=== PATIENT | male | born 1975 | race Caucasian/White ===

== ENCOUNTER 2017-09-25 18:10 | Emergency (ER) | payer OTHER ==
[~2017-09-25] VITALS: Ht 167.6 cm; Wt 80.7 kg
[2017-09-25 18:36] VITALS: BP 182/130
--- NOTE | 2017-09-25 18:44 | NUR ---
notified er md moya of elevated blood presure
--- NOTE | 2017-09-25 18:49 | NUR ---
42 YO M BIB SELF W/ C/O LEFT SIDED ABD PAIN 12/04 THAT IS CONSTANT, NON-RADIATING THAT BEGAN TODAY. PT DENIES N/V/D. DENIES FEVER/CHILLS. PT REPORTS THAT HE HAS NOT HAD ANY APPETITE CHANGES. PT A&O X 4. GCS 15. CMS INTACT. RR EVEN AND UNLABORED. LUNGS CLEAR BILAT. ABD SOFT, NON-TENDER. ER MD SERRANO NOTIFIED. PT NEEDS MET. WILL CONTINUE TO MONITOR.
--- NOTE | 2017-09-25 19:14 | NUR ---
PT MOVED TO BED 11
--- NOTE | 2017-09-25 20:00 | NUR ---
Patient appears to be resting comfortably in bed. Vital Signs within normal limits. Respirations even and unlabored.
[2017-09-25] MEDS ORDERED: NACL 0.9% 1,000 ML IV SCH (21:02)
[2017-09-25] MEDS ORDERED: MORPHINE SULFATE 4 MG/ML SYR IVP ONE (21:05)
[2017-09-25] MEDS ORDERED: ONDANSETRON 4 MG/2 ML VIAL IVP ONE (21:05)
[2017-09-25 21:24] LABS: APPEARANCE,URINE CLEAR (CLEAR); BILIRUBIN,URINE NEGATIVE (NEGATIVE); BLOOD, URINE NEGATIVE (NEGATIVE); LEUKOCYTE ESTERASE ,URINE NEGATIVE (NEGATIVE); NITRITE, URINE NEGATIVE (NEGATIVE); UGLUCOSE NEGATIVE (NEGATIVE)
[2017-09-25 21:26] LABS: BASOPHILS % (AUTO) 0.5 % (0.0-2.0); EOSINOPHILS # (AUTO) 0.1 K/uL (0-0.4); EOSINOPHILS % (AUTO) 1.3 % (0.0-4.0); HEMATOCRIT 47.4 % (36-52); HEMOGLOBIN 16.3 g/dL (12.0-18.0); LYMPHOCYTES # (AUTO) 2.6 K/uL (2.0-11.5); LYMPHOCYTES % (AUTO) 43.8 % (20.5-51.1); MEAN CORPUSCULAR HEMOGLOBIN 33 pg (27-31); MEAN CORPUSCULAR HGB CONC 34 g/dL (33-37); MEAN CORPUSCULAR VOLUME 96.8 fL (80-94); MONOCYTES # (AUTO) 0.8 K/uL (0.8-1.0); MONOCYTES % (AUTO) 13.1 % (1.7-9.3); NEUTROPHILS # (AUTO) 2.5 K/uL (1.8-7.7); NEUTROPHILS % (AUTO) 41.3 % (42.2-75.2); PLATELET COUNT (AUTO) 318 K/uL (140-450); RED CELL DISTRIBUTION WIDTH 12.4 % (11.6-13.7)
[2017-09-25 21:30] LABS: ANION GAP 9.9 (8-16); POTASSIUM 3.9 mmol/L (3.5-5.1)
[2017-09-25 21:30] LABS: COLOR,URINE STRAW (YELLOW)
--- NOTE | 2017-09-25 21:31 | NUR ---
PT TAKEN TO CT
[2017-09-25 21:35] LABS: TOTAL BILIRUBIN 0.5 mg/dL (0.0-1.0)
--- NOTE | 2017-09-25 21:38 | NUR ---
PT RETURN FROM CT
--- NOTE | 2017-09-25 22:01 | NUR ---
PT RESTING COMFORTABLY IN BED, RR EVEN AND UNLABORED, PT REPORTS 1/10 ABD PAIN AFTER MORPHINE IVP, REPORTS RELIEF OF NAUSEA AT THIS TIME. NOTIFIED DR FELTON OF ELEVATED BP, PT DENIES CP, SOB, DIZZINESS.
--- NOTE | 2017-09-25 23:04 | NUR ---
Patient discharged with v/s stable. Written and verbal after care instructions given and explained. Patient alert, oriented and verbalized understanding of instructions. Ambulatory with steady gait. All questions addressed prior to discharge. ID band removed. Patient advised to follow up with PMD. Rx of AND TYLENOL given. Patient educated on indication of medication including possible reaction and side effects. Opportunity to ask questions provided and answered.
[2017-09-25 23:05] VITALS: BP 164/107
== END 2017-09-25 23:04 | disposition home or self-care (01) ==
LOC: MED 18:10
DX: R10.32 Left lower quadrant pain (principal)
CPT/HCPCS: 36415; 74176; 80053; 81003; 83690; 85025; 96361; 96374; 96375; 99285; J2270; J2405; J7030